=== PATIENT | female | born 1965 | race Caucasian/White ===

== ENCOUNTER → 2016-05-05 | Day surgery (SDC) | payer OTHER ==
[~2016-05-05] MED LIST: AMARYL4 MG PO; COREG 6.25MG6.25 MG PO; ELAVIL25 MG PO; LEXAPRO 10MG TA10 MG PO; NEURONTIN800 MG PO; NOVOLOG VI100 UNIT/1 SC; TOPAMAX50 MG PO; WELLBUTRIN XL150 MG PO
[2016-05-05 11:11] LABS: HCT 35.9 % (37.0-47.0); HGB 11.8 g/dl (12.5-16.0); MCH 28.3 pg (25.0-31.0); MCHC 32.9 g/dL (32.0-36.0); MCV 86.1 fL (78.0-100.0); MPV 10.5 fL (6.0-9.5); RBC 4.17 M/uL (4.20-5.40); WBC 6.1 K/uL (4.0-10.5)
[2016-05-05 11:29] LABS: INR 0.98 (0.9-1.2); PROTHROMBIN TIME 12.6 SECONDS (11.7-14.0); PTT 30.2 SECONDS (23.2-31.4)
[2016-05-05 11:36] LABS: BILIRUBIN - TOTAL 0.2 mg/dL (0.1-1.0); CREATININE 0.6 mg/dL (0.5-1.0); GLOBULIN (CALCULATION) 2.8 g/dL (2.2-4.2); POTASSIUM 4.2 mmol/L (3.5-5.1); TOTAL PROTEIN 6.8 g/dL (6.4-8.3)
[2016-05-05 11:49] LABS: TSH (THYROID STIM HORMONE) 2.13 uIU/mL (0.270-4.200); VITAMIN D (25-OH) 20.46 ng/mL
[2016-05-05 11:51] LABS: FOLIC ACID (SERUM) > 20.0 ng/mL (4.4-31.0)
== END | disposition home or self-care (01) ==
LOC: FAS 09:56
PROVIDERS: Surgery
DX: K29.50 Unspecified chronic gastritis without bleeding (principal); E66.01 Morbid (severe) obesity due to excess calories; Z68.36 Body mass index [BMI] 36.0-36.9, adult; K21.9 Gastro-esophageal reflux disease without esophagitis; I10 Essential (primary) hypertension; E11.9 Type 2 diabetes mellitus without complications; E78.5 Hyperlipidemia, unspecified; F41.9 Anxiety disorder, unspecified; F32.9 Major depressive disorder, single episode, unspecified; M19.90 Unspecified osteoarthritis, unspecified site; G47.00 Insomnia, unspecified; Z90.710 Acquired absence of both cervix and uterus; Z85.42 Personal history of malignant neoplasm of other parts of uterus; Z87.891 Personal history of nicotine dependence; Z83.3 Family history of diabetes mellitus; Z82.49 Family history of ischemic heart disease and other diseases of the circulatory system; Z80.9 Family history of malignant neoplasm, unspecified; Z83.49 Family history of other endocrine, nutritional and metabolic diseases; Z80.6 Family history of leukemia; Z79.4 Long term (current) use of insulin; Z79.84 Long term (current) use of oral hypoglycemic drugs; Z79.1 Long term (current) use of non-steroidal anti-inflammatories (NSAID); Z79.899 Other long term (current) drug therapy; Z98.890 Other specified postprocedural states
CPT/HCPCS: 36415; 80053; 80061; 82306; 82607; 82728; 82746; 83036; 83540; 83550; 84425; 84443; 85610; 85730; 88305; 88312